=== PATIENT | female | born 1995 | race Caucasian/White ===

== ENCOUNTER 2020-07-05 13:39 | Emergency (ER) | payer MEDICAID ==
[~2020-07-05] VITALS: Ht 170.2 cm; Wt 91.6 kg
[2020-07-05 13:43] VITALS: BP 132/87
[2020-07-05] MEDS ORDERED: PENI-321 PO (13:56)
[2020-07-05] MEDS ORDERED: IBUP-2213 PO (13:56)
[2020-07-05] MEDS ORDERED: PRED20TA5 PO (13:56)
[2020-07-05 14:21] VITALS: BP 132/87
== END 2020-07-05 14:22 | disposition home or self-care (01) ==
LOC: MED 13:39
DX: J02.0 Streptococcal pharyngitis (principal); Z79.899 Other long term (current) drug therapy
CPT/HCPCS: 99283